=== PATIENT | female | born 1955 | race Caucasian/White ===

== ENCOUNTER 2025-01-31 17:18 | Emergency (ER) | payer MEDICARE, SELFPAY ==
[2025-01-31 17:24] VITALS: BP 152/86
--- NOTE | 2025-01-31 17:27 | ED.GENMED ---
History of Present Illness
General
Chief Complaint: Breathing Problem
Time Seen by Provider: 01/31/25 17:27
History of Present Illness
History of Present Illness:
REVIEW OF OLD RECORDS
- No old records available for review in [facility]; I reviewed the notes from [facility]
Note:
CHIEF COMPLAINT(S)
Breathing difficulty, bone aches, and lumps in the groin and underarm.
HISTORY OF PRESENT ILLNESS
The patient is a 69-year-old female with a history of hypoxic encephalopathy, chronic schizoaffective bipolar disorder, chronic obstructive pulmonary disease (COPD), and hypertension. She presented with respiratory distress, significant bone aches,
and palpable lumps in her groin and underarm regions, describing these as possibly swollen lymph nodes. The patient reported experiencing serious breathing difficulties for the past month and noted that she had not received nebulizer treatments,
which she believed she needed. She mentioned experiencing intermittent fevers and recalled being diagnosed with COVID-19 about a week ago following a visit to [facility] emergency department. During that visit, she was tested and confirmed positive
for COVID-19.She mentioned typically requiring five liters per minute of supplemental oxygen but was uncertain of the exact usage at the time of the visit.
PAST MEDICAL AND SURGICAL HISTORY
Cognitive impairment with hypoxic encephalopathy, chronic schizoaffective bipolar disorder, chronic obstructive pulmonary disease (COPD), hypertension, hypothyroidism, and anxiety.
CHRONIC MEDICAL CONDITIONS SIGNIFICANTLY AFFECTING CARE
Cognitive impairment with hypoxic encephalopathy, chronic schizoaffective bipolar disorder, chronic obstructive pulmonary disease (COPD), hypertension.
SOCIAL DETERMINANTS AFFECTING HEALTH
The patient lives at a memory care facility, [facility], indicating housing instability as a social determinant affecting health. She considers this placement temporary, with plans to return to her home, which may impact her healthcare continuity.
REVIEW OF SYSTEMS
- Respiratory: Difficulty breathing, especially over the last month.
- Musculoskeletal: Significant aches in bones.
- Lymphatic: Reported lumps in groin and underarm regions.
- Constitutional: Recent fevers.
PHYSICAL EXAM
General: She appears chronically weak and debilitated, wearing nasal cannula oxygen
Skin: Warm, dry.
Head: Normocephalic, atraumatic.
Neck: Supple, trachea midline.
Eye Ears, nose, mouth and throat: Oral mucosa moist.
Cardiovascular: Normal peripheral perfusion, No edema.
Respiratory: Respirations are non-labored. Decreased breath sounds equally without wheeze
Gastrointestinal: Abdomen nondistended.
Back: Normal range of motion, Normal alignment.
Musculoskeletal: Normal ROM, normal strength.
Neurological: She is awake and alert but mild cognitive deficits are noted
Psychiatric: Somewhat of a bizarre affect
PROBLEM LIST
Acute Problems:
1. Respiratory distress
2. Recent COVID-19 infection
3. Palpable lumps in groin and underarm
4. Bone aches
5. Fever
Chronic Problems:
1. Cognitive impairment with hypoxic encephalopathy
2. Chronic schizoaffective disorder
3. Chronic obstructive pulmonary disease (COPD)
4. Hypertension
5. Anxiety
PLAN
1. Administer nebulization and steroid medications for COPD exacerbation.
2. Conduct blood tests and order a chest X-ray to investigate lumps and evaluate lung status.
3. Monitor oxygen levels carefully, maintaining the patient�s oxygen saturation within target range, especially considering her COPD history.
4. Arrange necessary ongoing care and possible changes in management upon further diagnostic results and evaluation.
DIFFERENTIAL DIAGNOSIS
The Differential Diagnosis includes, in no particular order and is not limited to:
1. Pulmonary embolism
2. Pneumonia
3. COVID-19
4. Exacerbation of chronic obstructive pulmonary disease (COPD)
5. Lymphadenopathy
6. Bone metastasis
7. Chronic pain syndrome
8. Anxiety disorder
9. Heart failure
10. Sarcoidosis
RADIOLOGY
- Chest x-ray obtained�no clear sign of pneumonia
EKG
- Sinus 67, left axis deviation, LAFB, poor R wave progression, no old to compare
LABS
- Mild leukocytosis, troponin negative
UPDATE
-SUMMARY OF ENCOUNTER
The patient, a 69-year-old female with multiple medical conditions, was seen due to bone pain and general discomfort. She expressed dissatisfaction with her current living situation at [facility] and mentioned not feeling well overall. The
patient believes a CT scan is necessary. Her concerns were communicated to her son, who is the power of commercial real estate attorney. Further discussion with her son was necessary to address care management and living arrangements.
MANAGEMENT OF THE PATIENTS CARE WAS DISCUSSED WITH
Discussion with the patients son, who is listed as the power of commercial real estate attorney, regarding her complaints and care management options.
MEDICAL DECISION MAKING
- Number and Complexity of Problems Addressed: Chronic conditions affecting care [cognitive impairment with hypoxic encephalopathy, chronic schizoaffective bipolar disorder, chronic obstructive pulmonary disease (COPD), hypertension, and anxiety]
- Data:
Category 3: Discussion of management with the patients son, who is the power of commercial real estate attorney, to address her concerns and potential need for a CT scan.
- Risk: Care significantly affected by Social Determinants of Health: Housing instability at her current temporary residence in [facility].
Phy Exam
Physical Exam
Physical Exam:
See HPI
Scores
Heart Failure Risk
Heart Failure Risk Score: Not Applicable
Course
Orders/Labs/Results
Orders:
Orders
01/31/25 17:20
EKG [Electrocardiogram (*1)] Urgent
Reason for Study: Shortness of Breath
EKG- Treatment ONCE
01/31/25 17:34
COVID-19 Antigen Urgent
Source: Nasal Swab
Complete Blood Count/With Diff Urgent
Comprehensive Metabolic Panel Urgent
Troponin I Urgent
Influenza A+B Rapid Molecular Urgent
BRIT Source: Nasal Swab
Specimen Description:
01/31/25 17:35
Ipratropium/Albuterol Sulfate [Duoneb] 3 ml INH R NOW STA
MethylPREDNISolone PF [Solu-Medrol Pf] 125 mg IV NOW STA
CR Chest Portable - 1 View Urgent
Comment:
Reason For Exam: sob copd
Reason Study Needs to be Portable: Patient Unstable
Abnormal Lab Results
01/31/25
17:34
WBC 13.7 H 10^3/uL
(4.8-10.8)
MCH 31.6 H pg
(27.0-31.0)
MCHC 32.8 L g/dL
(33.0-37.0)
Abs Immat Gran (auto) 0.3 H 10^3/uL
(0-0.05)
Absolute Neuts (auto) 10.5 H 10^3/uL
(1.4-6.5)
Absolute Monos (auto) 1.0 H 10^3/uL
(0.1-0.6)
Immature Gran % 1.9 H %
(0-0.5)
Neutrophils % 76.5 H %
(42.2-75.2)
Lymphocytes % 13.9 L %
(20.5-51.1)
Creatinine 0.5 L mg/dL
(0.6-1.0)
AST 39 H U/L
(14-36)
ALT 36 H U/L
(0-35)
01/31/25 17:34
01/31/25 17:34
Vital Signs
Initial and Last Documented VS:
Initial Vital Signs
Temp Pulse Resp Pulse Ox
36.7 C 63 28 99
01/31/25 17:21 01/31/25 17:21 01/31/25 17:21 01/31/25 17:21
Last Documented Vital Signs
Temp Pulse Resp BP Pulse Ox
36.7 C 63 22 121/71 95
01/31/25 17:21 01/31/25 19:30 01/31/25 19:30 01/31/25 19:00 01/31/25 19:30
*Pulse Oximetry
SaO2: 99
Nasal Cannula flow liters per minute: 6
Patient hypoxic: yes (The patient is chronically hypoxic and usually is on 5 L/min. On 5 L/min she has been 98% here, and I even lowered her FiO2)
*Critical Care Note
Total Time (30-74mins, 75-104mins- exclusive of procedures): Not Applicable
ED Attending Note
-
Portions of this chart may have been created with voice recognition software.� Occasional wrong word or��sound alike� substitutions may have occurred due to the inherent limitations of voice recognition software.
Discharge Plan
Departure
Patient Disposition: Home (Routine Discharge)
Date of Disposition: 01/31/25
Time of Disposition: 19:44
Patient with high blood pressure during this ER visit?: Yes
Discharge Problem:
COPD (chronic obstructive pulmonary disease)
Instructions: Shortness of Breath (Dyspnea) (DC)
Referrals:
Stephie Nicholas, DO [Family Provider, General]
Activity Restrictions/Additional Instructions:
COVID test is negative. White blood cell count slightly elevated 13.7. Other basic blood work normal. I spoke to the son. We gave a DuoNeb and a steroid by IV. Follow-up with your doctors. Return if worse or other concerns.
Interventions
Interventions:
*Risk Screen - Suicide Last Done: 01/31/25 17:25
*General Assessment Last Done: 01/31/25 17:25
*Neglect/Abuse Screening Last Done: 01/31/25 17:25
*ED- Fall Risk Assessment Last Done: 01/31/25 17:25
*ED COVID-19 Vaccine History Last Done: 01/31/25 17:25
*ED Influenza Vaccine History Last Done: 01/31/25 17:25
ED- Cardiac Assessment Last Done: 01/31/25 17:33
ED- Pulmonary Assessment Last Done: 01/31/25 17:33
Discharge Date and Time
Print Language: [id number]
[2025-01-31] MEDS: SOLU-MEDROL PF 125 MG IV (17:42)
[2025-01-31] MEDS: DUONEB 3 ML INH (17:43)
[2025-01-31 17:45] LABS: Hematocrit 40.5 % (37.0-47.0); Hemoglobin 13.3 g/dL (12.0-16.0); Mean Corp Hgb Conc. 32.8 g/dL (33.0-37.0); Mean Corpuscular Volume 96.2 fL (81.0-99.0); Nucleated Red Blood Cells % 0 %; Platelet Count 344 10^3/uL (130-400); Red Cell Dist. Width 13.8 % (11.5-14.5)
[2025-01-31 18:05] LABS: COVID-19 Antigen Negative (Negative)
[2025-01-31 18:11] LABS: Troponin I < 0.012 ng/ml
[2025-01-31 18:13] LABS: ALT (SGPT) 36 U/L (0-35); AST (SGOT) 39 U/L (14-36); Albumin 4.2 g/dl (3.5-5.0); Alkaline Phosphatase 68 U/L (38-126); Blood Urea Nitrogen 13 mg/dl (7-17); Calcium 9.3 mg/dl (8.4-10.2); Carbon Dioxide 27 mmol/L (22-30); Chloride 104 mmol/L (98-107); Estimated Creatinine Clearance 81 ml/min; Glucose 94 mg/dl (70-99); Potassium 4.9 mmol/L (3.5-5.1); Sodium 135 mmol/L (135-145); Total Protein 6.9 g/dl (6.3-8.2); eGFR > 60.00
[2025-01-31 19:00] VITALS: BP 121/71
[2025-01-31] MEDS: ZYPREXA 5 MG IM (20:10)
[2025-01-31 21:00] VITALS: BP 137/97
== END 2025-01-31 21:28 | disposition home or self-care (01) ==
LOC: EMR 17:18
PROVIDERS: EMERGENCY PHYSICIAN Emergency Medicine; FAMILY PHYSICIAN Hospitalist
DX: J44.9 Chronic obstructive pulmonary disease, unspecified (principal); G31.84 Mild cognitive impairment of uncertain or unknown etiology; I10 Essential (primary) hypertension; E03.9 Hypothyroidism, unspecified; F25.0 Schizoaffective disorder, bipolar type; F41.9 Anxiety disorder, unspecified; Z99.81 Dependence on supplemental oxygen; Z86.16 Personal history of COVID-19
CPT/HCPCS: 99284; 96374; 96372; 94640; 71045; 80053; 84484; 85025; 87502; 87811; 93005; J2358